=== PATIENT | male | born 1970 | race Asian ===

== ENCOUNTER 2022-04-03 17:14 | Inpatient (IN) | payer BC ==
[~2022-04-03] VITALS: Ht 172.7 cm; Wt 61.4 kg
[~2022-04-03 17:14] MED LIST: ASPI-1450 PO; ATOR40TA28 PO
[2022-04-03] MEDS ORDERED: ACETAMINOPHEN 500 MG TABLET PO ONE (18:45)
[2022-04-03] MEDS ORDERED: MECLIZINE HCL 25 MG TABLET PO ONE (18:45)
[2022-04-03] MEDS ORDERED: ONDANSETRON HCL 4 MG TABLET PO ONE (18:45)
[2022-04-03 19:19] LABS: HEMATOCRIT 46.3 % (41-53); HEMOGLOBIN 14.4 g/dL (13.5-17.5); MEAN CORPUSCULAR HEMOGLOBIN 22.7 pg (26.0-34.0); MEAN CORPUSCULAR HGB CONC 31.1 G/dL (31.0-37.0); MEAN CORPUSCULAR VOLUME 73 fL (80-100); RED BLOOD CELL COUNT(AUTO) 6.35 MIL/uL (4.50-5.90); RED CELL DISTRIBUTION WIDTH 15.7 % (11.5-14.5)
[2022-04-03 19:26] LABS: PLATELET COUNT (AUTO) 208 K/uL (150-450)
[2022-04-03 19:28] LABS: ANION GAP 8 mmol/L (8-16); CALCIUM, TOTAL 10.3 mg/dL (8.8-10.5); CARBON DIOXIDE 30 mmol/L (22-29); CHLORIDE 101 mmol/L (98-107); CREATININE 0.99 mg/dL (0.60-1.30); GLUCOSE,RANDOM 129 mg/dL (70-110); POTASSIUM 4.7 mmol/L (3.5-5.1); SODIUM SERUM 139 mmol/L (136-145); UREA NITROGEN, BLOOD 12 mg/dL (7-18)
[2022-04-03 19:34] LABS: ALANINE AMINOTRANSFERASE 31 U/L (12-78); ALBUMIN 4.4 g/dL (3.4-5.0); ALKALINE PHOSPHATASE 52 U/L (46-116); ASPARTATE AMINOTRANSFERASE 20 U/L (15-37); BILIRUBIN,TOTAL 0.4 mg/dL (0.1-1.0)
[2022-04-03 19:35] LABS: GLOMERULAR FILTR. RATE CALC > 60 mL/min (>60)
[2022-04-03 19:50] LABS: BASOPHILS % (AUTO) 0.5 % (0.0-2.0); EOSINOPHILS % (AUTO) 1.4 % (1.0-6.0); LYMPHOCYTES # (AUTO) 2.8 K/uL (1.0-4.8); LYMPHOCYTES % (AUTO) 20.7 % (22.0-44.0); MONOCYTES # (AUTO) 1.1 K/uL (0.1-1.0); MONOCYTES % (AUTO) 8.5 % (2.0-9.0); NEUTROPHILS # (AUTO) 9.2 K/uL (1.8-7.7); NEUTROPHILS % (AUTO) 68.9 % (40.0-70.0)
[2022-04-03 19:51] LABS: PLATELET MORPHOLOGY COMMENT LARGE PLTS PRESENT
[2022-04-03] MEDS ORDERED: ASPIRIN 325 MG TABLET PO ONE (22:45)
[2022-04-03 23:06] LABS: COVID AG,FIA SOURCE NASAL SWAB
[2022-04-03] MEDS ORDERED: ACETAMINOPHEN 325 MG TABLET PO PRN (23:30)
[2022-04-03] MEDS ORDERED: ONDANSETRON HCL 4 MG/2 ML VIAL IVP PRN (23:30)
[2022-04-04] MEDS ORDERED: HEPARIN SODIUM,PORCINE 5,000 UNITS/ML VIAL SQ SCH
[2022-04-04] MEDS ORDERED: INSULIN LISPRO 100 UNITS/ML SQ PRN (00:30)
[2022-04-04] MEDS ORDERED: DEXTROSE 50%-WATER 25 GM/50 ML SYRINGE IVP PRN (00:30)
[2022-04-04 05:02] LABS: BASOPHILS % (AUTO) 0.6 % (0.0-2.0); EOSINOPHILS % (AUTO) 4.2 % (1.0-6.0); HEMATOCRIT 41.5 % (41-53); HEMOGLOBIN 13.2 g/dL (13.5-17.5); LYMPHOCYTES # (AUTO) 3.5 K/uL (1.0-4.8); LYMPHOCYTES % (AUTO) 36.1 % (22.0-44.0); MEAN CORPUSCULAR HEMOGLOBIN 23.1 pg (26.0-34.0); MEAN CORPUSCULAR HGB CONC 31.8 G/dL (31.0-37.0); MEAN CORPUSCULAR VOLUME 73 fL (80-100); MONOCYTES # (AUTO) 0.9 K/uL (0.1-1.0); MONOCYTES % (AUTO) 9.1 % (2.0-9.0); NEUTROPHILS # (AUTO) 4.8 K/uL (1.8-7.7); RED BLOOD CELL COUNT(AUTO) 5.71 MIL/uL (4.50-5.90); RED CELL DISTRIBUTION WIDTH 15.3 % (11.5-14.5)
[2022-04-04 05:10] LABS: ANION GAP 11 mmol/L (8-16); CALCIUM, TOTAL 6.3 mg/dL (8.8-10.5); CARBON DIOXIDE 20 mmol/L (22-29); CHLORIDE 99 mmol/L (98-107); CHOL/HDL RATIO 3.9 (4.2-7.3); CHOLESTEROL 126 mg/dL (131-200); CREATININE 0.78 mg/dL (0.60-1.30); GLUCOSE,RANDOM 84 mg/dL (70-110); HDL CHOLESTEROL 32 mg/dL (40-60); LDL CHOL (CALC.) 81 mg/dL (0-130); POTASSIUM 3.1 mmol/L (3.5-5.1); SODIUM SERUM 130 mmol/L (136-145); TRIGLYCERIDES 64 mg/dL (15-150); UREA NITROGEN, BLOOD 10 mg/dL (7-18)
[2022-04-04 05:24] LABS: GLOMERULAR FILTR. RATE CALC > 60 mL/min (>60)
[2022-04-04 08:31] LABS: PLATELET COUNT (AUTO) 189 K/uL (150-450)
[2022-04-04] MEDS: ASPIRIN 81 MG CHEWABLE TABLET PO SCH (09:10)
[2022-04-04] MEDS ORDERED: MAGNESIUM SULFATE 4 GM/WATER 100 ML IV PRN (19:00)
[2022-04-04] MEDS ORDERED: MAGNESIUM SULFATE 2 GM/WATER 50 ML IV PRN (19:00)
[2022-04-04] MEDS ORDERED: MAGNESIUM OXIDE 400 MG TABLET PO PRN (19:00)
[2022-04-04 19:11] LABS: ALBUMIN 2.5 g/dL (3.4-5.0)
[2022-04-04 20:43] VITALS: BP 137/85
[2022-04-04] MEDS: ATORVASTATIN CALCIUM 40 MG TABLET PO SCH (21:38)
[2022-04-05] VITALS (7 sets, daily range): BP systolic 103–120; BP diastolic 52–75
[2022-04-05 06:23] LABS: BASOPHILS % (AUTO) 0.5 % (0.0-2.0); EOSINOPHILS % (AUTO) 5.7 % (1.0-6.0); HEMATOCRIT 41.5 % (41-53); HEMOGLOBIN 13.4 g/dL (13.5-17.5); LYMPHOCYTES # (AUTO) 2.3 K/uL (1.0-4.8); LYMPHOCYTES % (AUTO) 28.1 % (22.0-44.0); MEAN CORPUSCULAR HEMOGLOBIN 23.3 pg (26.0-34.0); MEAN CORPUSCULAR HGB CONC 32.3 G/dL (31.0-37.0); MEAN CORPUSCULAR VOLUME 72 fL (80-100); MONOCYTES # (AUTO) 0.8 K/uL (0.1-1.0); MONOCYTES % (AUTO) 9.8 % (2.0-9.0); NEUTROPHILS # (AUTO) 4.6 K/uL (1.8-7.7); NEUTROPHILS % (AUTO) 55.9 % (40.0-70.0); RED BLOOD CELL COUNT(AUTO) 5.75 MIL/uL (4.50-5.90); RED CELL DISTRIBUTION WIDTH 15.1 % (11.5-14.5)
[2022-04-05 06:48] LABS: ALANINE AMINOTRANSFERASE 26 U/L (12-78); ALBUMIN 3.5 g/dL (3.4-5.0); ALKALINE PHOSPHATASE 44 U/L (46-116); ANION GAP 7 mmol/L (8-16); ASPARTATE AMINOTRANSFERASE 19 U/L (15-37); BILIRUBIN,TOTAL 0.4 mg/dL (0.1-1.0); CALCIUM, TOTAL 9.5 mg/dL (8.8-10.5); CARBON DIOXIDE 27 mmol/L (22-29); CHLORIDE 101 mmol/L (98-107); CHOL/HDL RATIO 4.3 (4.2-7.3); CHOLESTEROL 173 mg/dL (131-200); CREATININE 1.01 mg/dL (0.60-1.30); GLUCOSE,RANDOM 101 mg/dL (70-110); HDL CHOLESTEROL 40 mg/dL (40-60); LDL CHOL (CALC.) 112 mg/dL (0-130); TOTAL PROTEIN, SERUM 7.5 g/dL (6.4-8.2); TRIGLYCERIDES 107 mg/dL (15-150); UREA NITROGEN, BLOOD 16 mg/dL (7-18)
[2022-04-05 07:12] LABS: GLOMERULAR FILTR. RATE CALC > 60 mL/min (>60); SODIUM SERUM 135 mmol/L (136-145)
[2022-04-05 09:17] LABS: PLATELET COUNT (AUTO) 195 K/uL (150-450)
[2022-04-05] MEDS: ASPIRIN 81 MG CHEWABLE TABLET PO SCH (09:32)
[2022-04-05] MEDS: ATORVASTATIN CALCIUM 40 MG TABLET PO SCH (20:51)
[2022-04-05 21:11] LABS: GLUCOMETER DEV NAME(LOC) 5N.1C; GLUCOSE,POINT OF CARE 115 MG/DL (70-110)
[2022-04-05 21:11] LABS: GLUCOMETER DEV NAME(LOC) 5N.1C; GLUCOSE,POINT OF CARE 105 MG/DL (70-110)
[2022-04-06 03:36] LABS: GLUCOMETER DEV NAME(LOC) 5S.1B; GLUCOSE,POINT OF CARE 139 MG/DL (70-110)
[2022-04-06 04:05] VITALS: BP 118/79
[2022-04-06 06:26] LABS: BASOPHILS % (AUTO) 0.5 % (0.0-2.0); EOSINOPHILS % (AUTO) 4.5 % (1.0-6.0); HEMATOCRIT 41.8 % (41-53); HEMOGLOBIN 13.5 g/dL (13.5-17.5); LYMPHOCYTES # (AUTO) 2.5 K/uL (1.0-4.8); LYMPHOCYTES % (AUTO) 26.9 % (22.0-44.0); MEAN CORPUSCULAR HEMOGLOBIN 23.4 pg (26.0-34.0); MEAN CORPUSCULAR HGB CONC 32.2 G/dL (31.0-37.0); MEAN CORPUSCULAR VOLUME 73 fL (80-100); MONOCYTES # (AUTO) 0.9 K/uL (0.1-1.0); MONOCYTES % (AUTO) 9.6 % (2.0-9.0); NEUTROPHILS # (AUTO) 5.5 K/uL (1.8-7.7); NEUTROPHILS % (AUTO) 58.5 % (40.0-70.0); RED BLOOD CELL COUNT(AUTO) 5.74 MIL/uL (4.50-5.90); RED CELL DISTRIBUTION WIDTH 15.1 % (11.5-14.5)
[2022-04-06 06:49] LABS: ANION GAP 7 mmol/L (8-16); CALCIUM, TOTAL 9.6 mg/dL (8.8-10.5); CARBON DIOXIDE 27 mmol/L (22-29); CHLORIDE 104 mmol/L (98-107); CREATININE 1.01 mg/dL (0.60-1.30); GLUCOSE,RANDOM 101 mg/dL (70-110); POTASSIUM 3.9 mmol/L (3.5-5.1); SODIUM SERUM 138 mmol/L (136-145); UREA NITROGEN, BLOOD 20 mg/dL (7-18)
[2022-04-06 06:51] LABS: GLOMERULAR FILTR. RATE CALC > 60 mL/min (>60)
[2022-04-06 07:47] LABS: PLATELET COUNT (AUTO) 202 K/uL (150-450)
[2022-04-06 08:21] LABS: GLUCOMETER DEV NAME(LOC) 5S.1B; GLUCOSE,POINT OF CARE 115 MG/DL (70-110)
[2022-04-06 08:30] VITALS: BP 104/73
[2022-04-06] MEDS: ASPIRIN 81 MG CHEWABLE TABLET PO SCH (08:58)
[2022-04-06 11:42] LABS: GLUCOMETER DEV NAME(LOC) 5N.1C; GLUCOSE,POINT OF CARE 110 MG/DL (70-110)
[2022-04-06] MEDS ORDERED: ATORVASTATIN CALCIUM 40 MG TABLET PO SCH (21:00)
== END 2022-04-06 15:00 | disposition home or self-care (01) | DRG 65 ==
LOC: EMS 17:19 → AHU 23:45 → 5N 04-04 19:11
PROVIDERS: ADMIT Internal Medicine; ATTEND Internal Medicine
DX: I63.9 Cerebral infarction, unspecified (principal); R65.10 Systemic inflammatory response syndrome (SIRS) of non-infectious origin without acute organ dysfunction; J44.9 Chronic obstructive pulmonary disease, unspecified; I10 Essential (primary) hypertension; Z20.822 Contact with and (suspected) exposure to COVID-19; E78.00 Pure hypercholesterolemia, unspecified; F17.210 Nicotine dependence, cigarettes, uncomplicated; E11.65 Type 2 diabetes mellitus with hyperglycemia; Z86.73 Personal history of transient ischemic attack (TIA), and cerebral infarction without residual deficits; H53.461 Homonymous bilateral field defects, right side; G93.89 Other specified disorders of brain
CPT/HCPCS: 70450; 70496; 70498; 70553; 80048; 80053; 80061; 82040; 82962; 83036; 83735; 84484; 85025; 87040; 92610; 93005; 93306; 99285; G0378; J1644; J3475; Q0162

== ENCOUNTER 2023-06-02 09:20 | Emergency (ER) | payer BC ==
[~2023-06-02] VITALS: Ht 162.6 cm; Wt 70.4 kg
[2023-06-02 09:28] VITALS: TEMP 97.6
[2023-06-02 09:51] LABS: GLUCOMETER DEV NAME(LOC) ER.6; GLUCOSE,POINT OF CARE 153 MG/DL (70-110)
[2023-06-02 10:22] LABS: BASOPHILS % (AUTO) 0.6 % (0.0-2.0); EOSINOPHILS % (AUTO) 0.9 % (1.0-6.0); HEMATOCRIT 42.8 % (41-53); HEMOGLOBIN 13.6 g/dL (13.5-17.5); LYMPHOCYTES # (AUTO) 1.9 K/uL (1.0-4.8); MEAN CORPUSCULAR HEMOGLOBIN 23.1 pg (26.0-34.0); MEAN CORPUSCULAR HGB CONC 31.8 G/dL (31.0-37.0); MEAN CORPUSCULAR VOLUME 73 fL (80-100); MONOCYTES # (AUTO) 0.7 K/uL (0.1-1.0); MONOCYTES % (AUTO) 7.1 % (2.0-9.0); NEUTROPHILS # (AUTO) 6.7 K/uL (1.8-7.7); NEUTROPHILS % (AUTO) 71.4 % (40.0-70.0); PLATELET COUNT (AUTO) 139 K/uL (150-450); RED CELL DISTRIBUTION WIDTH 14.5 % (11.5-14.5); WHITE BLOOD COUNT (AUTO) 9.4 K/uL (4.5-11.0)
[2023-06-02 10:38] LABS: ALCOHOL, BLOOD (SERUM) < 3 mg/dL (0-10)
[2023-06-02 10:40] LABS: ALANINE AMINOTRANSFERASE 53 U/L (12-78); ALBUMIN 3.7 g/dL (3.4-5.0); ALKALINE PHOSPHATASE 44 U/L (46-116); ANION GAP 13 mmol/L (8-16); ASPARTATE AMINOTRANSFERASE 27 U/L (15-37); B-TYPE NATRIURETIC PEPTIDE 21 pg/mL (0-100); BILIRUBIN,TOTAL 0.5 mg/dL (0.1-1.0); CALCIUM, TOTAL 8.8 mg/dL (8.8-10.5); CARBON DIOXIDE 24 mmol/L (22-29); CHLORIDE 102 mmol/L (98-107); CREATININE 0.84 mg/dL (0.60-1.30); GLOMERULAR FILTR. RATE CALC > 60 mL/min (>60); GLUCOSE,RANDOM 153 mg/dL (70-110); POTASSIUM 3.5 mmol/L (3.5-5.1); SODIUM SERUM 139 mmol/L (136-145); TOTAL PROTEIN, SERUM 7.3 g/dL (6.4-8.2); UREA NITROGEN, BLOOD 11 mg/dL (7-18)
[2023-06-02 10:44] LABS: TROPONIN I-HIGH SENSITIVITY 7 ng/L (<76)
[2023-06-02 10:47] LABS: RBC MORPHOLOGY COMMENT ABNORMAL RBC MORPH
[2023-06-02] MEDS ORDERED: SODIUM CHLORIDE 0.9% 100 ML ONE (11:11)
[2023-06-02] MEDS ORDERED: IOHEXOL 350 MG/ML 100 ML VIAL ONE (11:11)
[2023-06-02] MEDS: ACETAMINOPHEN 500 MG TABLET PO ONE (12:01)
[2023-06-02 12:45] VITALS: BP 165/79; PULSE 82; RESP 14
== END 2023-06-02 12:56 | disposition home or self-care (01) ==
LOC: EMS 09:20
DX: S13.4XXA Sprain of ligaments of cervical spine, initial encounter (principal); F17.210 Nicotine dependence, cigarettes, uncomplicated; J44.9 Chronic obstructive pulmonary disease, unspecified; E11.9 Type 2 diabetes mellitus without complications; E78.00 Pure hypercholesterolemia, unspecified; I10 Essential (primary) hypertension; V89.2XXA Person injured in unspecified motor-vehicle accident, traffic, initial encounter; Y93.89 Activity, other specified; Y92.89 Other specified places as the place of occurrence of the external cause; Y99.8 Other external cause status
CPT/HCPCS: 99285; 70450; 71045; 80053; 82962; 83880; 84484; 85025; 36415; 73552; 73562; 71260; 72125; 72129; 72132; 74177; 93005; G0480; Q9967; J7050; 72193; 74160